=== PATIENT | male | born 1955 | race American Indian/Alaskan Native ===

== ENCOUNTER 2019-02-25 18:02 | Observation (INO) | payer MEDICARE ==
[2019-02-25] MEDS ORDERED: ONDANSETRON 4 MG/2 ML INJ IV ONE (19:15)
--- NOTE | 2019-02-25 19:25 | Emergency Department Report ---
ED Chest Pain HPI - General Chief Complaint: Chest Pain Stated Complaint: CHEST PAIN Time Seen by Provider: 02/25/19 19:07 Source: patient, EMS Mode of arrival: Stretcher Limitations: No Limitations - History of Present Illness Initial Comments: 64-year-old -[place] male presents to the emergency department via EMS from home with a complaint of a 5 day history of left-sided chest pain and generalized abdominal pain. It is associated with nausea, vomiting, shortness of breath, chills, sweats. The symptoms are intermittent. He tried some Beatrice- Eudora for his symptoms, thinking it was food poisoning, without much relief. He received a full dose aspirin and 3 sublingual nitroglycerin in route with EMS with some mild relief. He has a past history of mem-vxhscpe-[id number] diabetes, acid reflux, hypertension, coronary artery disease with PR but without cardiac stents. He is a tobacco smoker but denies any illicit drug use. His primary care physician is a Dr. Helm but he does not have any sort line. No recent travel or sick contacts at home. - Related Data Allergies Allergy/AdvReac Type Severity Reaction Status Date / Time No Known Allergies Allergy Verified 02/25/19 23:45 Heart Score - HEART Score History: Moderately suspicious EKG: Normal Age: > 65 Risk factors: > 3 risk factors or hx of atherosclerotic disease Troponin: < normal limit HEART Score: 5 - Critical Actions Critical Actions: 4-6 pts:12-16.6% risk of adverse cardiac event. Should be admitted ED Review of Systems ROS: Stated complaint: CHEST PAIN Other details as noted in HPI Comment: All other systems reviewed and negative Constitutional: chills, diaphoresis Eyes: denies: eye pain, vision change ENT: denies: ear pain, throat pain Respiratory: shortness of breath. denies: cough Cardiovascular: chest pain. denies: palpitations, edema Gastrointestinal: abdominal pain, nausea, vomiting. denies: diarrhea, constipation Genitourinary: denies: dysuria, discharge Musculoskeletal: denies: back pain, arthralgia Skin: denies: rash Neurological: denies: headache, weakness ED Past Medical Hx - Past Medical History Previous Medical History?: Yes Hx Hypertension: Yes Hx Heart Attack/AMI: Yes Hx Diabetes: Yes Hx GERD: Yes - Social History Smoking Status: Current Every Day Smoker Substance Use Type: None ED Physical Exam - General Limitations: No Limitations ED Course Vital Signs 02/25/19 02/25/19 02/25/19 18:41 20:02 20:58 Temperature 98.9 F 98.4 F Pulse Rate 80 73 73 Respiratory 16 13 12 Rate Blood Pressure 109/63 Blood Pressure 119/73 151/76 [Right] O2 Sat by Pulse 98 98 98 Oximetry 02/25/19 02/25/19 02/26/19 22:37 23:00 00:00 Temperature Pulse Rate 70 71 75 Respiratory 15 13 18 Rate Blood Pressure Blood Pressure 149/75 184/84 170/86 [Right] O2 Sat by Pulse 96 98 96 Oximetry 02/26/19 01:00 Temperature Pulse Rate 78 Respiratory 14 Rate Blood Pressure Blood Pressure 148/76 [Right] O2 Sat by Pulse 96 Oximetry SOPHIE score - Sophie Score Age > 65: (1) Yes Aspirin use within the Past 7 Days: (0) No 3 or more CAD Risk Factors: (1) Yes 2 or more Angina events in past 24 hrs: (1) Yes Known CAD with more than 50% Stenosis: (0) No Elevated Cardiac Markers: (0) No ST Deviation Greater than 0.5mm: (0) No SOPHIE Score: 3 ED Medical Decision Making - Lab Data Result diagrams: 02/25/19 19:46 02/25/19 19:46 - EKG Data -: EKG Interpreted by Me EKG shows normal: sinus rhythm, axis, intervals, QRS complexes, ST-T waves Rate: normal - EKG Data When compared to previous EKG there are: previous EKG unavailable Interpretation: normal EKG - Radiology Data Radiology results: report reviewed, image reviewed interpreted by me: Chest x-ray does not show any pneumonia, pneumothorax, focal consolidation, pleural effusions, or any other acute process. Abdominal x-ray shows nonspecific nonobstructive bowel gas CT angiography of the chest with 2-D reconstructions INDICATION: Chest pain and elevated d-dimer Thin section axial images were obtained as well as 2-D reformatted MIP images in all 3 planes FINDINGS: There is no hilar or mediastinal adenopathy. No pleural or pericardial effusion. Lung windows show no nodules, masses or infiltrates. There is no thoracic aortic aneurysm or dissection present. Routine axial images as well as 2-D reconstructions through the pulmonary arteries show no evidence of emboli. IMPRESSION: Negative chest CTA CT of the abdomen and pelvis with contrast INDICATION: Chest and abdominal pain FINDINGS: The liver, spleen, pancreas and kidneys show no definite abnormalities. Nodularity of both adrenal glands is likely benign. No definite gallbladder or biliary tree abnormality. No fluid or adenopathy in the upper abdomen. There is moderate vascular calcification without aneurysm. CT of the pelvis shows no pelvic or inguinal adenopathy. No diverticulosis or diverticulitis. Prostate is not enlarged. Appendix is seen and is normal. No significant skeletal lesion. IMPRESSION: Negative study. - Medical Decision Making Patient presents with a 5 day history of some left-sided chest pain and abdominal pain. He has generalized tenderness to palpation of the abdomen but the abdomen is soft and nondistended. Heart lung sounds are normal to auscultation. Labs show some hyperglycemia without signs of diabetic ketoacidosis. He had a negative troponin but a positive d-dimer. CT a ngiography of the chest did not show any pulmonary embolism or any other acute process. CT of the abdomen and pelvis with contrast also did not show any acute process. The patient has a moderate SOPHIE score with multiple cardiac risk factors. He says that he has not had a stress test previously. For these reasons the patient will be admitted to the hospital for further evaluation and treatment and was accepted for admission by the hospitalist, Dr. Varner. - Differential Diagnosis PR, PE, Cholelithiasis, Pancreatitis Critical Care Time: No Critical care attestation.: If time is entered above; I have spent that time in minutes in the direct care of this critically ill patient, excluding procedure time. ED Disposition Clinical Impression: Acute chest pain, Hyperglycemia Abdominal pain Qualifiers: Abdominal location: generalized Qualified Code(s): R10.84 - Generalized abdominal pain Disposition: OP ADMIT IP TO THIS HOSP Is pt being admited?: Yes Condition: Fair Time of Disposition: 22:52
[2019-02-25 19:57] LABS: Basophils # (Auto) 0.1 K/mm3 (0.0-0.1); Basophils % (Auto) 0.6 % (0.0-1.8); Eosinophils % (Auto) 0.2 % (0.0-4.3); Hematocrit 38.6 % (35.5-45.6); Hemoglobin 13.8 gm/dl (11.8-15.2); Lymphocytes % (Auto) 25.9 % (13.4-35.0); Mean Corpuscular HGB Conc 36 % (32-34); Mean Corpuscular Volume 92 fl (84-94); Monocytes % (Auto) 8.8 % (0.0-7.3); Platelet Count 265 K/mm3 (140-440); Red Blood Count 4.22 M/mm3 (3.65-5.03); Red Cell Distribution Width 13.7 % (13.2-15.2)
[2019-02-25 20:24] LABS: Alanine Aminotransferase 7 units/L (7-56); Albumin 3.7 g/dL (3.9-5); BUN/Creatinine Ratio 33; Blood Urea Nitrogen 43 mg/dL (9-20); Hemolysis Index 43
--- NOTE | 2019-02-25 20:33 | XRay Report ---
ACUTE ABDOMINAL SERIES, 6 VIEWS INDICATION: Abd pain. COMPARISON: No relevant prior imaging study available. FINDINGS: No acute findings are seen on the included chest radiograph. No free air is identified. There are mildly distended loops of small bowel within the mid abdomen. Gas and fecal material are no taina throughout the colon, which is normal in caliber. No abnormal calcifications are seen. IMPRESSION: 1. Mid small bowel loops are mildly distended with gas. This could be seen in the setting of enteriti s. Signer Name: Miguel Angel Nguyen MD Signed: 02/25/2019 8:29 PM Workstation Name: [id number]
[2019-02-25] MEDS ORDERED: SODIUM CHLORIDE 0.9% 1000 ML 1,000 ML IV ONE (20:47)
[2019-02-25] MEDS ORDERED: INSULIN REGULAR, HUMAN 100 UNITS/1 ML IV ONE (20:59)
[2019-02-25] MEDS ORDERED: MORPHINE 4 MG/1 ML INJ IV ONE (20:59)
--- NOTE | 2019-02-25 22:45 | Cat Scan Report ---
CT angiography of the chest with 2-D reconstructions INDICATION: Chest pain and elevated d-dimer Thin section axial images were obtained as well as 2-D reformatted MIP images in all 3 planes FINDINGS: There is no hilar or mediastinal adenopathy. No pleural or pericardial effusion. Lung windo ws show no nodules, masses or infiltrates. There is no thoracic aortic aneurysm or dissection present . Routine axial images as well as 2-D reconstructions through the pulmonary arteries show no evidence of emboli. IMPRESSION: Negative chest CTA CT of the abdomen and pelvis with contrast INDICATION: Chest and abdominal pain FINDINGS: The liver, spleen, pancreas and kidneys show no definite abnormalities. Nodularity of both adrenal glands is likely benign. No definite gallbladder or biliary tree abnormality. No fluid or jeffrey nopathy in the upper abdomen. There is moderate vascular calcification without aneurysm. CT of the pelvis shows no pelvic or inguinal adenopathy. No diverticulosis or diverticulitis. Prostat e is not enlarged. Appendix is seen and is normal. No significant skeletal lesion. IMPRESSION: Negative study. Automated exposure control was utilized to diminish radiation dose. Signer Name: Escobar Casas MD Signed: 02/25/2019 10:40 PM Workstation Name: [id number]
[2019-02-25] MEDS ORDERED: LIDOCAINE VISCOUS 2% 15 ML ORAL LIQD PO ONE (22:58)
[2019-02-25] MEDS ORDERED: ALUM-MAG HYDROXIDE-SIMETHICONE 200-200-20MG/5ML ORAL LIQD 30 ML PO ONE (22:58)
[2019-02-25] MEDS ORDERED: NITROGLYCERIN 0.4 MG TAB SUBL SL PRN (23:27)
[2019-02-25] MEDS ORDERED: MORPHINE 2 MG/1 ML INJ IV PRN (23:27)
[2019-02-25] MEDS ORDERED: ACETAMINOPHEN 325 MG TAB PO PRN (23:27)
[2019-02-25] MEDS ORDERED: ONDANSETRON 4 MG/2 ML INJ IV PRN (23:27)
[2019-02-25] MEDS ORDERED: DEXTROSE 50% IN WATER (25GM) 50 ML SYRINGE IV PRN (23:27)
--- NOTE | 2019-02-25 23:50 | History and Physical Report ---
History of Present Illness Date of examination: 02/25/19 Date of admission: 02/25/2019 Chief complaint: Chest pain History of present illness: Except 4-year-old -Congolese male with known history of hypertension coronary artery disease with GA in the past, diabetes mellitus and GERD presenting to the emergency room today complaining of chest pain. Chest pain is said to be left-sided and radiating towards the left upper extremity and left side of his jaw. There is no no relieving or exacerbating factor. He has also had some intermittent abdominal pain, nausea and vomiting. He denies any fever or chills. He was given some sublingual nitroglycerin, asp irin with some improvement. Upon arrival in the emergency room his work-up has been unremarkable . He admits that he has not been quite compliant with his medications and therefore his blood sugar has been uncontrolled. Past History Past Medical History: CAD, diabetes, hypertension Past Surgical History: Other (Eye surgery) Social history: smoking (Smokes less than half a pack of cigarette daily) Family history: CAD (Heart disease in mother), diabetes (Diabetes mellitus in mother) Medications and Allergies Allergies Allergy/AdvReac Type Severity Reaction Status Date / Time No Known Allergies Allergy Verified 02/25/19 23:45 Active Meds: Active Medications Acetaminophen (Tylenol) 650 mg PO Q4H PRN PRN Reason: Pain MILD(1-3)/Fever >100.5/MORRISON Aspirin (Ecotrin) 325 mg PO QDAY ASAF Dextrose (D50w (25gm) Syringe) 50 ml IV Q30MIN PRN; Protocol PRN Reason: Hypoglycemia Sodium Chloride (Nacl 0.9% 1000 Ml) 1,000 mls @ 125 mls/hr IV ONCE ONE Stop: 02/26/19 04:46 Last Admin: 02/25/19 20:58 Dose: 125 mls/hr Documented by: Insulin Human Lispro (Humalog) 0 unit SUB-Q ACHS ASAF; Protocol Morphine Sulfate (Morphine) 2 mg IV Q5MIN PRN PRN Reason: Chest Pain unrelieved by NTG Nitroglycerin (Nitrostat) 0.4 mg SL Q5M PRN PRN Reason: Chest Pain Ondansetron HCl (Zofran) 4 mg IV Q8H PRN PRN Reason: Nausea And Vomiting Sodium Chloride (Sodium Chloride Flush Syringe 10 Ml) 10 ml IV PRN PRN PRN Reason: LINE FLUSH Sodium Chloride (Sodium Chloride Flush Syringe 10 Ml) 10 ml IV BID ASAF Sodium Chloride (Sodium Chloride Flush Syringe 10 Ml) 10 ml IV PRN PRN PRN Reason: LINE FLUSH Review of Systems Cardiovascular: chest pain, shortness of breath Gastrointestinal: nausea, vomiting Exam - Constitutional Vitals: Temp Pulse Resp BP Pulse Ox 98.4 F 71 13 184/84 98 02/25/19 20:02 02/25/19 23:00 02/25/19 23:00 02/25/19 23:00 02/25/19 23:00 General appearance: Present: no acute distress, well-nourished - EENT Eyes: Present: PERRL, EOM intact ENT: hearing intact, clear oral mucosa, dentition normal - Neck Neck: Present: supple, normal ROM - Respiratory Respiratory effort: normal Respiratory: bilateral: CTA - Cardiovascular Rhythm: regular Heart Sounds: Present: S1 & S2 - Extremities Extremities: no ischemia, pulses intact, No edema, Full ROM Peripheral Pulses: within normal limits - Abdominal General gastrointestinal: Present: soft, non-tender, non-distended - Integumentary Integumentary: Present: clear, warm, dry, normal turgor - Psychiatric Psychiatric: appropriate mood/affect, intact judgment & insight, cooperative - Neurologic Neurologic: CNII-XII intact, moves all extremities Results - Labs CBC & Chem 7: 02/25/19 19:46 02/25/19 19:46 Labs: Abnormal lab results 02/25/19 02/25/19 02/25/19 Range/Units 19:46 19:46 19:46 WBC 11.5 H (4.5-11.0) K/mm3 MCH 33 H (28-32) pg MCHC 36 H (32-34) % Randolph % (Auto) 8.8 H (0.0-7.3) % Randolph # 1.0 H (0.0-0.8) K/mm3 D-Dimer 1337.08 H (0-234) ng/mlDDU Sodium 135 L (137-145) mmol/L Chloride 97.5 L (98-107) mmol/L Carbon Dioxide 21 L (22-30) mmol/L BUN 43 H (9-20) mg/dL Glucose 372 H (75-100) mg/dL POC Glucose (70-105) Albumin 3.7 L (3.9-5) g/dL 02/25/19 Range/Units 22:26 WBC (4.5-11.0) K/mm3 MCH (28-32) pg MCHC (32-34) % Randolph % (Auto) (0.0-7.3) % Randolph # (0.0-0.8) K/mm3 D-Dimer (0-234) ng/mlDDU Sodium (137-145) mmol/L Chloride (98-107) mmol/L Carbon Dioxide (22-30) mmol/L BUN (9-20) mg/dL Glucose (75-100) mg/dL POC Glucose 248 H (70-105) Albumin (3.9-5) g/dL Assessment and Plan - Patient Problems (1) Acute chest pain Current Visit: Yes Status: Acute Plan to address problem: Patient admitted and placed on telemetry. We will check serial cardiac enzymes. Patient be placed on aspirin, sublingual nitroglycerin and IV morphine as needed. We will place a consult to cardiology for further evaluation and recommendation. (2) Abdominal pain Current Visit: Yes Status: Acute Qualifiers: Abdominal location: generalized Qualified Code(s): R10.84 - Generalized abdominal pain Plan to address problem: Patient placed on analgesic medication as needed. Abdominal pain has subsided since arrival in the emergency room. (3) Hyperglycemia Current Visit: Yes Status: Acute Plan to address problem: We will monitor Accu-Cheks closely and continue routine home medications once reconciled. (4) DVT prophylaxis Current Visit: Yes Status: Acute Plan to address problem: Patient placed on subcutaneous heparin. (5) Full code status Current Visit: Yes Status: Acute
[2019-02-26] MEDS ORDERED: SODIUM CHLORIDE 0.9% 1000 ML 1,000 ML ONE (01:05)
[2019-02-26 02:13] LABS: Chol/HDL Ratio 4.62 %
[2019-02-26 08:57] LABS: INR 1.17 (0.87-1.13)
[2019-02-26 08:58] LABS: Partial Thromboplastin Time 28.7 Sec. (24.2-36.6)
[2019-02-26 09:07] LABS: BUN/Creatinine Ratio 28; Blood Urea Nitrogen 31 mg/dL (9-20); Calcium 8.5 mg/dL (8.4-10.2); Hemolysis Index 5
[2019-02-26] MEDS ORDERED: INSULIN LISPRO 100 UNIT/ML SUB-Q ONE (10:05)
[2019-02-26] MEDS: INSULIN LISPRO 100 UNIT/ML SUB-Q SCH ×4 (10:07→21:22)
--- NOTE | 2019-02-26 12:08 | Progress Note ---
Assessment and Plan Assessment and plan: Chest pain. Continue telemetry monitoring. Follow-up cardiac isoenzymes. Continue aspirin, sublingual nitroglycerin and IV morphine as needed. Cardiology has been consulted and plans for ischemic evaluation with stress test in a.m. Abdominal pain. Resolved. CT scan of the abdomen pelvis negative. Elevated d-dimer. CTA of the chest negative for PE. DVT prophylaxis. Continue subcutaneous heparin. History Interval history: No new issues overnight. Hospitalist Physical - Constitutional Vitals: Temp Pulse Resp BP Pulse Ox 99.4 F 71 16 157/86 94 02/26/19 10:37 02/26/19 10:37 02/26/19 10:37 02/26/19 10:37 02/26/19 10:37 General appearance: Present: no acute distress, well-nourished - EENT Eyes: Present: PERRL, EOM intact ENT: hearing intact, clear oral mucosa, dentition normal - Neck Neck: Present: supple, normal ROM - Respiratory Respiratory effort: normal Respiratory: bilateral: CTA - Cardiovascular Rhythm: regular Heart Sounds: Present: S1 & S2. Absent: gallop, rub - Extremities Extremities: no ischemia, No edema, Full ROM - Abdominal General gastrointestinal: soft, non-tender, non-distended, normal bowel sounds - Integumentary Integumentary: Present: clear, warm, dry - Neurologic Neurologic: CNII-XII intact, moves all extremities Results - Labs CBC & Chem 7: 02/25/19 19:46 02/26/19 08:27 Labs: Laboratory Last Values WBC 11.5 K/mm3 (4.5-11.0) H 02/25/19 19:46 RBC 4.22 M/mm3 (3.65-5.03) 02/25/19 19:46 Hgb 13.8 gm/dl (11.8-15.2) 02/25/19 19:46 Hct 38.6 % (35.5-45.6) 02/25/19 19:46 MCV 92 fl (84-94) 02/25/19 19:46 MCH 33 pg (28-32) H 02/25/19 19:46 MCHC 36 % (32-34) H 02/25/19 19:46 RDW 13.7 % (13.2-15.2) 01/07/20 19:46 Plt Count 265 K/mm3 (140-440) 02/25/19 19:46 Lymph % (Auto) 25.9 % (13.4-35.0) 02/25/19 19:46 Morrill % (Auto) 8.8 % (0.0-7.3) H 02/25/19 19:46 Eos % (Auto) 0.2 % (0.0-4.3) 02/25/19 19:46 Baso % (Auto) 0.6 % (0.0-1.8) 02/25/19 19:46 Lymph # 3.0 K/mm3 (1.2-5.4) 02/25/19 19:46 Morrill # 1.0 K/mm3 (0.0-0.8) H 02/25/19 19:46 Eos # 0.0 K/mm3 (0.0-0.4) 02/25/19 19:46 Baso # 0.1 K/mm3 (0.0-0.1) 02/25/19 19:46 Seg Neutrophils % 64.5 % (40.0-70.0) 02/25/19 19:46 Seg Neutrophils # 7.4 K/mm3 (1.8-7.7) 02/25/19 19:46 PT 15.1 Sec. (12.2-14.9) H 02/26/19 08:27 INR 1.17 (0.87-1.13) H 02/26/19 08:27 APTT 28.7 Sec. (24.2-36.6) 02/26/19 08:27 D-Dimer 1337.08 ng/mlDDU (0-234) H 02/25/19 19:46 Sodium 137 mmol/L (137-145) 02/26/19 08:27 Potassium 4.2 mmol/L (3.6-5.0) 02/26/19 08:27 Chloride 104.0 mmol/L (98-107) 02/26/19 08:27 Carbon Dioxide 20 mmol/L (22-30) L 02/26/19 08:27 Anion Gap 17 mmol/L 02/26/19 08:27 BUN 31 mg/dL (9-20) H 02/26/19 08:27 Creatinine 1.1 mg/dL (0.8-1.5) 02/26/19 08:27 Estimated GFR > 60 ml/min 02/26/19 08:27 BUN/Creatinine Ratio 28 % 02/26/19 08:27 Glucose 283 mg/dL (75-100) H 02/26/19 08:27 POC Glucose 207 (70-105) H 02/26/19 08:45 Calcium 8.5 mg/dL (8.4-10.2) 02/26/19 08:27 Total Bilirubin 1.20 mg/dL (0.1-1.2) 02/25/19 19:46 AST 10 units/L (5-40) 02/25/19 19:46 ALT 7 units/L (7-56) 02/25/19 19:46 Alkaline Phosphatase 60 units/L (35-129) 02/25/19 19:46 Troponin T < 0.010 ng/mL (0.00-0.029) 02/26/19 08:27 Total Protein 6.6 g/dL (6.3-8.2) 02/25/19 19:46 Albumin 3.7 g/dL (3.9-5) L 02/25/19 19:46 Albumin/Globulin Ratio 1.3 % 02/25/19 19:46 Triglycerides 165 mg/dL (2-149) H 02/26/19 01:02 Cholesterol 125 mg/dL (50-199) 02/26/19 01:02 LDL Cholesterol Direct 74 mg/dL (50-130) 02/26/19 01:02 HDL Cholesterol 27 mg/dL (40-59) L 02/26/19 01:02 Cholesterol/HDL Ratio 4.62 % 02/26/19 01:02 Lipase 28 units/L (13-60) 02/25/19 19:46 Active Medications - Current Medications Current Medications: Generic Name Dose Route Start Last Admin Trade Name Freq PRN Reason Stop Dose Admin Acetaminophen 650 mg 02/25/19 23:27 Tylenol PO Q4H PRN Pain MILD(1-3)/Fever >100.5/MORRISON Aspirin 325 mg 02/26/19 10:00 Ecotrin PO QDAY ASAF Dextrose 50 ml 02/25/19 23:27 D50w (25gm) Syringe IV Q30MIN PRN Hypoglycemia Protocol Heparin Sodium (Porcine) 5,000 unit 02/26/19 14:00 Heparin SUB-Q Q8HR ASAF Insulin Human Lispro 0 unit 02/26/19 07:30 02/26/19 10:07 Humalog SUB-Q 3 unit ACHS ASAF Administration Protocol Morphine Sulfate 2 mg 02/25/19 23:27 Morphine IV Q5MIN PRN Chest Pain unrelieved by NTG Nitroglycerin 0.4 mg 02/25/19 23:27 Nitrostat SL Q5M PRN Chest Pain Ondansetron HCl 4 mg 02/25/19 23:27 Zofran IV Q8H PRN Nausea And Vomiting Sodium Chloride 10 ml 02/25/19 23:27 Sodium Chloride Flush Syringe 10 Ml IV PRN PRN LINE FLUSH Sodium Chloride 10 ml 02/26/19 10:00 02/26/19 10:08 Sodium Chloride Flush Syringe 10 Ml IV 10 ml BID ASAF Administration
--- NOTE | 2019-02-26 12:18 | Consultation ---
History of Present Illness Consult date: 02/26/19 Requesting physician: THAO WILLIAMSON Consult reason: chest pain History of present illness: The pt is a 64-year-old male with a past medical history of HTN, DM, HLP, reported AMI but without cardiac stents, tobacco use. He is previously unknown to our practice, does not regularly see a windows consultant. He presented with c/o nausea, vomiting, diarrhea and chest pain since Sunday. Pt ate a sandwich on Sunday and initially thought his symptoms were secondary to food poisoning. He tried some [place] for his symptoms without much relief. He describes his chest pain as an intermittent left-sided pressure. He is a rather poor historian and does not provide any additional details. Past History Past Medical History: CAD, diabetes, hypertension, hyperlipidemia Past Surgical History: Other (Eye surgery) Social history: smoking (Smokes less than half a pack of cigarette daily) Family history: CAD (Heart disease in mother), diabetes (Diabetes mellitus in mother) Medications and Allergies Allergies Allergy/AdvReac Type Severity Reaction Status Date / Time No Known Allergies Allergy Verified 02/25/19 23:45 Active Meds: Active Medications Acetaminophen (Tylenol) 650 mg PO Q4H PRN PRN Reason: Pain MILD(1-3)/Fever >100.5/MORRISON Aspirin (Ecotrin) 325 mg PO QDAY [facility] Dextrose (D50w (25gm) Syringe) 50 ml IV Q30MIN PRN; Protocol PRN Reason: Hypoglycemia Heparin Sodium (Porcine) (Heparin) 5,000 unit SUB-Q Q8HR [facility] Insulin Human Lispro (Humalog) 0 unit SUB-Q ACHS [facility]; Protocol Last Admin: 02/26/19 10:07 Dose: 3 unit Documented by: Morphine Sulfate (Morphine) 2 mg IV Q5MIN PRN PRN Reason: Chest Pain unrelieved by NTG Nitroglycerin (Nitrostat) 0.4 mg SL Q5M PRN PRN Reason: Chest Pain Ondansetron HCl (Zofran) 4 mg IV Q8H PRN PRN Reason: Nausea And Vomiting Sodium Chloride (Sodium Chloride Flush Syringe 10 Ml) 10 ml IV PRN PRN PRN Reason: LINE FLUSH Sodium Chloride (Sodium Chloride Flush Syringe 10 Ml) 10 ml IV BID [facility] Last Admin: 02/26/19 10:08 Dose: 10 ml Documented by: Review of Systems Constitutional: no weight loss, no weight gain, no fever, no chills, no sweats Ears, nose, mouth and throat: no ear pain, no nose pain, no sinus pressure, no sinus pain Cardiovascular: chest pain, no orthopnea, no palpitations, no rapid/irregular heart beat, no edema, no syncope, no lightheadedness, no shortness of breath, no dyspnea on exertion Respiratory: no cough, no shortness of breath, no dyspnea on exertion, no congestion, no wheezing, no pain on inspiration Gastrointestinal: nausea, vomiting, diarrhea, no constipation Genitourinary Male: no dysuria, no hematuria, no flank pain, no discharge, no urinary frequency, no urinary hesitancy Musculoskeletal: no neck stiffness, no neck pain, no shooting arm pain, no arm numbness/tingling, no low back pain, no shooting leg pain Integumentary: no rash, no pruritis, no redness, no sores, no wounds Neurological: no head injury, no paralysis, no weakness, no parathesias, no numbness, no tingling, no seizures, no syncope Psychiatric: no anxiety Endocrine: no cold intolerance, no heat intolerance Hematologic/Lymphatic: no easy bruising, no easy bleeding Allergic/Immunologic: no urticaria, no wheezing Physical Examination Vital Signs Temp Pulse Resp BP Pulse Ox 98.9 F 80 16 109/63 98 02/25/19 18:41 02/25/19 18:41 02/25/19 18:41 02/25/19 18:41 02/25/19 18:41 General appearance: no acute distress HEENT: Positive: PERRL, Normocephaly, Mucus Membranes Moist Neck: Positive: neck supple, trachea midline Cardiac: Positive: Reg Rate and Rhythm, S1/S2 Lungs: Positive: Decreased Breath Sounds Neuro: Positive: Grossly Intact Abdomen: Negative: Tender Skin: Negative: Rash Musculoskeletal: No Pain Extremities: Absent: edema Results 02/25/19 19:46 02/26/19 08:27 Cardiac Enzymes 02/25/19 Range/Units 19:46 AST 10 (5-40) units/L Coagulation 02/26/19 Range/Units 08:27 PT 15.1 H (12.2-14.9) Sec. INR 1.17 H (0.87-1.13) APTT 28.7 (24.2-36.6) Sec. Lipids 02/26/19 Range/Units 01:02 Triglycerides 165 H (2-149) mg/dL Cholesterol 125 (50-199) mg/dL HDL Cholesterol 27 L (40-59) mg/dL Cholesterol/HDL Ratio 4.62 % CBC 02/25/19 Range/Units 19:46 WBC 11.5 H (4.5-11.0) K/mm3 RBC 4.22 (3.65-5.03) M/mm3 Hgb 13.8 (11.8-15.2) gm/dl Hct 38.6 (35.5-45.6) % Plt Count 265 (140-440) K/mm3 Lymph # 3.0 (1.2-5.4) K/mm3 Avery # 1.0 H (0.0-0.8) K/mm3 Eos # 0.0 (0.0-0.4) K/mm3 Baso # 0.1 (0.0-0.1) K/mm3 Comprehensive Metabolic Panel 02/25/19 02/26/19 Range/Units 19:46 08:27 Sodium 135 L 137 (137-145) mmol/L Potassium 4.4 4.2 (3.6-5.0) mmol/L Chloride 97.5 L 104.0 (98-107) mmol/L Carbon Dioxide 21 L 20 L (22-30) mmol/L BUN 43 H 31 H (9-20) mg/dL Creatinine 1.3 1.1 (0.8-1.5) mg/dL Glucose 372 H 283 H (75-100) mg/dL Calcium 9.0 8.5 (8.4-10.2) mg/dL AST 10 (5-40) units/L ALT 7 (7-56) units/L Alkaline Phosphatase 60 (35-129) units/L Total Protein 6.6 (6.3-8.2) g/dL Albumin 3.7 L (3.9-5) g/dL - Imaging and Cardiology EKG: report reviewed, image reviewed EKG interpretations - Telemetry EKG Rhythm: Sinus Rhythm - EKG Sinus rhythms and dysrhythmias: sinus rhythm Assessment and Plan Abd/pelvis CT negative, chest CTA negative. AMI ruled out. Optimize anti-hypertensive regimen. Obtain echo and plan for lexiscan MPI stress test in AM. NPO after MN. Further recs to follow per hospital course. The patient has been seen in conjunction with Dr. Fernando who agrees with the assessment and plan of care. - Patient Problems (1) Chest pain Current Visit: Yes Status: Acute (2) Nausea vomiting and diarrhea Current Visit: Yes Status: Acute (3) History of myocardial infarction Current Visit: Yes Status: Chronic Plan to address problem: per pt report (4) HTN (hypertension) Current Visit: Yes Status: Chronic (5) Diabetes Current Visit: Yes Status: Chronic (6) Hyperlipidemia Current Visit: Yes Status: Chronic (7) Tobacco use Current Visit: Yes Status: Chronic
[2019-02-26] MEDS: HEPARIN 5,000 UNIT/1 ML VIAL SUB-Q SCH ×2 (16:45→21:18)
[2019-02-26] MEDS: ASPIRIN EC 325 MG TAB PO SCH (17:44)
[2019-02-26] MEDS: METOPROLOL TARTRATE 25 MG TAB PO SCH (21:18)
[2019-02-27] MEDS: HEPARIN 5,000 UNIT/1 ML VIAL SUB-Q SCH ×2 (06:18→13:01)
[2019-02-27] MEDS ORDERED: REGADENOSON 0.4 MG/5 ML INJ IV ONE ×2 (07:16→07:23)
[2019-02-27] MEDS: INSULIN LISPRO 100 UNIT/ML SUB-Q SCH ×3 (08:25→17:32)
--- NOTE | 2019-02-27 11:52 | Progress Note ---
Assessment and Plan Abd/pelvis CT negative, chest CTA negative. Echo reviewed - EF 55-60%, impaired relaxation, mild LVH. S/p lexiscan MPI stress test this AM which was negative. Currently stable cardiac status. Chest pain resolved. Optimize anti-hypertensive regimen. Pt may discharge from cardiology standpoint. Recommend pt follow up in our office with Dr. Fernando within 1-2 weeks ([phone]). The patient has been seen in conjunction with Dr. Fernando who agrees with the assessment and plan of care. - Patient Problems (1) Chest pain Current Visit: Yes Status: Resolved (2) Nausea vomiting and diarrhea Current Visit: Yes Status: Acute (3) History of myocardial infarction Current Visit: Yes Status: Chronic (4) HTN (hypertension) Current Visit: Yes Status: Chronic (5) Diabetes Current Visit: Yes Status: Chronic (6) Hyperlipidemia Current Visit: Yes Status: Chronic (7) Tobacco use Current Visit: Yes Status: Chronic Subjective Date of service: 02/27/19 Principal diagnosis: cp Interval history: for stress test. in sr on tele. Objective Last Vital Signs Temp 97.9 F 02/27/19 08:48 Pulse 70 02/27/19 08:48 Resp 20 02/27/19 08:48 BP 156/78 02/27/19 10:52 Pulse Ox 97 02/27/19 08:52 - Physical Examination General: No Apparent Distress HEENT: Positive: PERRL, Normocephaly, Mucus Membranes Moist Neck: Positive: neck supple, trachea midline Cardiac: Positive: Reg Rate and Rhythm, S1/S2 Lungs: Positive: Decreased Breath Sounds Neuro: Positive: Grossly Intact Abdomen: Negative: Tender Skin: Negative: Rash Musculoskeletal: No Pain Extremities: Absent: edema - Imaging and Cardiology EKG: report reviewed, image reviewed - EKG Sinus rhythms and dysrhythmias: sinus rhythm
[2019-02-27] MEDS: ASPIRIN EC 325 MG TAB PO SCH (12:11)
[2019-02-27] MEDS: METOPROLOL TARTRATE 25 MG TAB PO SCH (12:12)
[2019-02-27 12:14] VITALS: BP 187/69
[2019-02-27] MEDS ORDERED: amLODIPine 10 MG TAB PO SCH (13:00)
[2019-02-27] MEDS ORDERED: amLODIPine 5 MG TAB PO SCH (14:00)
--- NOTE | 2019-02-27 15:45 | Discharge Summary ---
Providers - Providers Date of Admission: 02/25/19 22:56 Date of discharge: 02/27/19 Attending physician: MART OLIVERA 02/25/19 Consult to Cardiac Rehabilitation [CONS] Routine Reason For Exam: Phase I 02/25/19 23:28 Consult to Cardiology [CONS] Routine Consulting Provider: TRAY CEDILLO Reason For Exam: chest pain Primary care physician: WHIZZER Hospitalization Condition: Fair Pertinent studies: CT scan abdomen negative. A cardiogram ejection fraction 60%. Stress tests unremarkable. Hospital course: He shouldn't 64 years old presented with left-sided chest pain cardiac workup negative. Cardiac isoenzymes negative. Patient also had abdominal pain CT abdomen unremarkable. Pain resolved echocardiogram normal ejection fraction 60%. Stress test negative. Patient stable to be discharge follow-up with cardiology 2 weeks. Optimize medical management with blood pressure. Disposition: TO HOME OR SELFCARE - Discharge Diagnoses (1) Acute chest pain Status: Acute (2) Nausea vomiting and diarrhea Status: Acute (3) Diabetes Status: Chronic (4) HTN (hypertension) Status: Chronic (5) Hyperlipidemia Status: Chronic Comment: Continue statin atorvastatin. Follow-up LDL. (6) Tobacco use Status: Chronic Comment: Nicotine patch stress tobacco counseling. Core Measure Documentation - Palliative Care Palliative Care/ Comfort Measures: Not Applicable - Core Measures Any of the following diagnoses?: none Exam - Constitutional Vitals: Temp Pulse Resp BP Pulse Ox 97.9 F 68 20 187/69 97 02/27/19 08:48 02/27/19 13:29 02/27/19 08:48 02/27/19 13:29 02/27/19 08:52 General appearance: Present: no acute distress, well-nourished - EENT Eyes: Present: PERRL ENT: hearing intact, clear oral mucosa - Neck Neck: Present: supple, normal ROM - Respiratory Respiratory effort: normal Respiratory: bilateral: CTA - Cardiovascular Heart Sounds: Present: S1 & S2. Absent: rub, click - Extremities Extremities: pulses symmetrical, No edema Peripheral Pulses: within normal limits - Abdominal General gastrointestinal: Present: soft, non-tender, non-distended, normal bowel sounds Male genitourinary: Present: normal - Integumentary Integumentary: Present: clear, warm, dry - Musculoskeletal Musculoskeletal: gait normal, strength equal bilaterally - Psychiatric Psychiatric: appropriate mood/affect, intact judgment & insight - Neurologic Neurologic: CNII-XII intact, moves all extremities Plan Activity: no restrictions Diet: low cholesterol, diabetic Follow up with: PRIMARY CARE, [Primary Care Provider] - 3-5 Days Prescriptions: Nitroglycerin [Nitrostat] 0.4 mg SL Q5M PRN #20 tablet PRN Reason: Chest Pain
--- NOTE | 2019-02-27 22:36 | Treadmill Report ---
NUCLEAR CARDIAC IMAGING INDICATION FOR PROCEDURE: Chest pain. Informed consent was obtained. Vasodilator stress was achieved with the intravenous administration of 0.4 mg of Lexiscan per protocol. Nuclear cardiac imaging was obtained following the intravenous administration of technetium-99m Myoview per protocol. Gated SPECT imaging demonstrates a post-stress left ventricular ejection fraction of 51% with normal wall motion. Myocardial perfusion imaging demonstrates no significant cavity change between stress and rest. No significant stress induced reversible perfusion defects are seen. Nuclear cardiac imaging demonstrates grossly normal post-stress left ventricular systolic function with no significant evidence of myocardial ischemia or necrosis. JOB# [id number] LEE/SOBEIDA
== END 2019-02-27 19:03 | disposition home or self-care (01) ==
LOC: ED 18:02 → EDBD 18:02 → 4A 22:56 → EDBD 22:56 → 4A 02-26 09:31
PROVIDERS: ADMIT Internal Medicine Geriatric Medicine; ATTEND Internal Medicine
DX: R07.9 Chest pain, unspecified (principal); R10.84 Generalized abdominal pain; E11.65 Type 2 diabetes mellitus with hyperglycemia; I10 Essential (primary) hypertension; I25.10 Atherosclerotic heart disease of native coronary artery without angina pectoris; F17.210 Nicotine dependence, cigarettes, uncomplicated
CPT/HCPCS: 36415; 71275; 74022; 74177; 78452; 80048; 80053; 80061; 82962; 83690; 84484; 85025; 85379; 85610; 85730; 93005; 93010; 93017; 93306; 96361; 96372; 96374; 96375; 99284; 99406; A9502; G0378; J1644; J2270; J2405; J2785; J7030; Q9967; J1815

== ENCOUNTER 2020-02-28 21:15 | Emergency (ER) | payer MEDICARE ==
[2020-02-28 22:02] LABS: Basophils % (Auto) 0.8 % (0.0-1.8); Eosinophils # (Auto) 0.1 K/mm3 (0.0-0.4); Eosinophils % (Auto) 1.1 % (0.0-4.3); Hematocrit 36.3 % (35.5-45.6); Hemoglobin 12.4 gm/dl (11.8-15.2); Lymphocytes # (Auto) 2.2 K/mm3 (1.2-5.4); Lymphocytes % (Auto) 45.2 % (13.4-35.0); Mean Corpuscular HGB Conc 34 % (32-34); Mean Corpuscular Volume 93 fl (84-94); Monocytes # (Auto) 0.5 K/mm3 (0.0-0.8); Monocytes % (Auto) 10.4 % (0.0-7.3); Platelet Count 183 K/mm3 (140-440); Red Blood Count 3.91 M/mm3 (3.65-5.03); Red Cell Distribution Width 13.4 % (13.2-15.2)
[2020-02-28 22:25] LABS: Alanine Aminotransferase 19 units/L (7-56); Albumin 3.9 g/dL (3.9-5); BUN/Creatinine Ratio 20; Blood Urea Nitrogen 18 mg/dL (9-20); Calcium 8.9 mg/dL (8.4-10.2); Hemolysis Index 8
--- NOTE | 2020-02-28 22:28 | XRay Report ---
CHEST 2 VIEWS INDICATION: cough. COMPARISON: None. FINDINGS: Support devices: None. Heart: Within normal limits. Lungs/Pleura: No acute air space or interstitial disease. No significant pleural effusion. IMPRESSION: No acute findings. Signer Name: Mao Valverde MD Signed: 02/28/2020 10:23 PM Workstation Name: [id number]
[2020-02-28] MEDS ORDERED: SODIUM CHLORIDE 0.9% 1000 ML 1,000 ML IV ONE (22:40)
[2020-02-28] MEDS ORDERED: ONDANSETRON 4 MG/2 ML INJ IV ONE (22:45)
--- NOTE | 2020-02-28 22:51 | Emergency Department Report ---
ED General Adult HPI - General Chief complaint: Hyperglycemia Stated complaint: HIGH BS Source: patient Mode of arrival: Stretcher Limitations: No Limitations - History of Present Illness Initial comments: The patient was evaluated in the emergency department for symptoms described in the history of present illness. He/she was evaluated in the context of the global COVID-19 pandemic, which necessitated consideration that the patient might be at risk for infection with the virus that causes COVID-19. Institutional protocols and algorithms that pertain to the evaluation of patients at risk for COVID-19 are in a state of rapid change based on information released by regulatory bodies including the CDC and federal and state organizations. These policies and algorithms were followed during the patient's care in the emergency department. Please note that these policies, procedures and recommendations changed on a rapid basis. 65-year-old -[place] male presents to the emergency room via EMS stating he does not feel well has had nausea and no appetite for a week. Patient has a history of diabetes and has not taken his diabetic medication in a week. Yeny ent states he just feels weak and nauseated has not had any vomiting or diarrhea. Patient states he has not moved his bowels since he has not eaten anything. Patient denies any fever chills. Reports he last checked his blood sugar a week ago. His daughter called EMS she was concerned that he looked weak. Patient does have a primary care provider at [facility] on [address]. Patient states his last seen his doctor 1 month ago. Patient states he has not had a Covid test. Onset/Timin -: week(s) Consistency: intermittent Associated Symptoms: loss of appetite, nausea/vomiting (No vomiting), weakness. denies: chest pain, cough, fever/chills Treatments Prior to Arrival: none - Related Data Previous Rx's Medication Instructions Recorded Last Taken Type Acetaminophen [Acetaminophen TAB] 650 mg PO Q4H PRN tablet 02/27/19 Unknown Rx Metoprolol [Lopressor TAB] 25 mg PO BID tablet 02/27/19 Unknown Rx Nitroglycerin [Nitrostat] 0.4 mg SL Q5M PRN #20 tablet 02/27/19 Unknown Rx amLODIPine 5 mg PO QDAY tablet 02/27/19 Unknown Rx Ondansetron [Zofran Odt] 4 mg PO Q8HR PRN #12 tab.rapdis 02/28/20 Unknown Rx Allergies Allergy/AdvReac Type Severity Reaction Status Date / Time No Known Allergies Allergy Verified 02/25/19 23:45 ED Review of Systems ROS: Stated complaint: HIGH BS Other details as noted in HPI Comment: All other systems reviewed and negative ED Past Medical Hx - Past Medical History Previous Medical History?: Yes Hx Hypertension: Yes Hx Heart Attack/AMI: Yes Hx Diabetes: Yes Hx GERD: Yes - Surgical History Past Surgical History?: No - Social History Smoking Status: Current Every Day Smoker Substance Use Type: Marijuana - Medications Home Medications: Home Medications Medication Instructions Recorded Confirmed Last Taken Type Acetaminophen [Acetaminophen TAB] 650 mg PO Q4H PRN tablet 02/27/19 Unknown Rx Metoprolol [Lopressor TAB] 25 mg PO BID tablet 02/27/19 Unknown Rx Nitroglycerin [Nitrostat] 0.4 mg SL Q5M PRN #20 tablet 02/27/19 Unknown Rx amLODIPine 5 mg PO QDAY tablet 02/27/19 Unknown Rx Ondansetron [Zofran Odt] 4 mg PO Q8HR PRN #12 tab.rapdis 02/28/20 Unknown Rx ED Physical Exam - General Limitations: No Limitations ED Course Vital Signs 02/28/20 21:27 Temperature 98.0 F Pulse Rate 73 Respiratory 16 Rate Blood Pressure 165/74 O2 Sat by Pulse 100 Oximetry ED Medical Decision Making - Lab Data Result diagrams: 02/28/20 21:47 02/28/20 21:47 - Medical Decision Making 65-year-old -[place] male presents to the emergency room via EMS stating he does not feel well has had nausea and no appetite for a week. Patient has a history of diabetes and has not taken his diabetic medication in a week. Patient states he just feels weak and nauseated has not had any vomiting or diarrhea. Patient states he has not moved his bowels since he has not eaten anything. Patient denies any fever chills. Reports he last checked his blood sugar a week ago. His daughter called EMS she was concerned that he looked weak. Patient does have a primary care provider at [facility] on [address]. Patient states his last seen his doctor 1 month ago. Patient states he has not had a Covid test. Chest x-ray is negative for any acute findings. Labs show an elevated glucose of 269 and then 311 patient had a liter of fluids from EMS blood sugar is down to 253. Critical care attestation.: If time is entered above; I have spent that time in minutes in the direct care of this critically ill patient, excluding procedure time. ED Disposition Clinical Impression: Hyperglycemia, Nausea, Weakness generalized Disposition: DC-01 TO HOME OR SELFCARE Is pt being admited?: No Does the pt Need Aspirin: No Condition: Stable Instructions: Weakness, [id number], Hyperglycemia, [id number] Additional Instructions: Please take your nausea medication. Increase your fluid intake and advance your diet as tolerated. Follow-up with your primary care provider. I recommend getting a Covid test. Your symptoms appear most consistent with a nonspecific viral syndrome. However, given this current pandemic, COVID-19 is in the differential of poss ibilities. Despite your previous negative COVID-19 test, I do recommend repeat outpatient Covid 19 testing. In the meantime, isolate/quarantine yourself and stay away from anyone who is elderly, immunocompromised or chronically ill. You can use ibuprofen every 6-8 hours and Tylenol every 4-8 hours, using the dosing on the back of the bottle, as needed for any fever or body aches. Return to the emergency department with any worsening of your symptoms, development of chest pain or shortness of breath, or with any acute distress. Prescriptions: Ondansetron [Zofran Odt] 4 mg PO Q8HR PRN #12 tab.rapdis PRN Reason: Nausea [facility] JHOANA [Primary Care Provider] - 3-5 Days
[2020-02-28 23:43] VITALS: BP 112/64
[2020-02-29 00:21] LABS: Bilirubin,Urine NEG (Negative); Blood,Urine NEG (Negative); Color,Urine Yellow (Yellow); Mucus,Urine FEW /HPF
== END 2020-02-28 23:42 | disposition home or self-care (01) ==
LOC: ED 21:15
DX: E11.65 Type 2 diabetes mellitus with hyperglycemia (principal); R53.1 Weakness; R11.0 Nausea; I25.2 Old myocardial infarction; I10 Essential (primary) hypertension; K21.9 Gastro-esophageal reflux disease without esophagitis; F17.200 Nicotine dependence, unspecified, uncomplicated; F12.10 Cannabis abuse, uncomplicated; Z79.899 Other long term (current) drug therapy
CPT/HCPCS: 36415; 71046; 80053; 81001; 82805; 82962; 85025; 96374; 99284; J2405